=== PATIENT | female | born 1945 | race Asian ===

== ENCOUNTER 2016-12-25 22:03 | Inpatient (IN) | payer SELFPAY ==
[2016-12-25] MEDS ORDERED: BLOOD PRESSURE MED (22:26)
[2016-12-25 23:05] LABS: URINE BILIRUBIN NEGATIVE (NEG); URINE BLOOD NEGATIVE (NEG); URINE GLUCOSE (UA) NEGATIVE (NEG); URINE KETONE NEGATIVE (NEG); URINE LEUKOCYTE ESTERASE POSITIVE (NEG); URINE NITRITE NEGATIVE (NEG); URINE PROTEIN NEGATIVE (NEG); URINE SPECIFIC GRAVITY 1.005 (1.003-1.030)
[2016-12-25 23:06] LABS: URINE APPEARANCE CLEAR; URINE COLOR YELLOW
[2016-12-25 23:24] LABS: BASO % 0.8 % (0-2); EOS % 2.9 % (0-7); EOSINOPHIL ABSOLUTE COUNT 0.1 tho/cmm (0.0-0.7); HGB-HEMOGLOBIN 12.7 gm/dl (12.0-15.5); LYMPH % 34.2 % (20-45); LYMPH ABSOLUTE COUNT 1.7 tho/cmm (0.8-4.5); MCH (MEAN CORPUSCULAR HGB) 30.4 pg (28.0-32.0); MCHC MEAN CORPUSCULAR HGB CONC 33.4 % (32.0-36.0); MCV (MEAN CELL VOLUME) 90.9 fl (82.0-96.0); MEAN PLATELET VOLUME 10.6 cmc (9.4-12.4); MONOCYTE ABSOLUTE COUNT 0.4 tho/cmm (0.0-1.2); NEUTROPHIL ABSOLUTE COUNT 2.6 tho/cmm (1.6-8.0); NEUTROPHIL-AUTOMATED 2.6 tho/cmm (1.6-8.0); NEUTROPHILS % 53.1 % (40-80); PLATELET COUNT 190 tho/cmm (150-450); RED BLOOD COUNT 4.18 mil/cmm (4.00-5.20); RED CELL DISTRIBUTION WIDTH 11.9 % (12.4-16.4); WHITE BLOOD COUNT 4.9 tho/cmm (4.0-10.0)
[2016-12-25 23:54] LABS: ANION GAP 12 mmol/L (0-20); BLOOD UREA NITROGEN 13 mg/dl (6-24); CALCIUM 8.9 mg/dl (8.5-10.5); CARBON DIOXIDE-VENOUS 28 mmol/L (22-32); CHLORIDE 106 mmol/l (96-110); CREATININE 0.65 mg/dl (0.50-1.10); GLUCOSE 87 mg/dL (70-110); MAGNESIUM 2.4 mg/dl (1.3-2.6); POTASSIUM 3.5 mmol/L (3.7-5.1); SODIUM 142 mmol/L (135-145); eGFR VALUE FOR BLACK >90 mL/Min
[2016-12-26 01:14] LABS: CKMB 1.1 ng/ml (<3.6); CREATINE PHOSPHOKINASE (CPK) 92 U/L (21-215)
[2016-12-26 05:32] LABS: INR 0.9 INR (0.9-1.1)
[2016-12-26 05:39] LABS: ANION GAP 10 mmol/L (0-20); BLOOD UREA NITROGEN 12 mg/dl (6-24); CALCIUM 8.6 mg/dl (8.5-10.5); CARBON DIOXIDE-VENOUS 28 mmol/L (22-32); CHLORIDE 110 mmol/l (96-110); CREATININE 0.67 mg/dl (0.50-1.10); GLUCOSE 93 mg/dL (70-110); POTASSIUM 3.7 mmol/L (3.7-5.1); SODIUM 144 mmol/L (135-145); eGFR VALUE FOR BLACK >90 mL/Min
[2016-12-26 05:45] LABS: CKMB 1.4 ng/ml (<3.6); CREATINE PHOSPHOKINASE (CPK) 65 U/L (21-215)
[2016-12-26 09:35] LABS: CREATINE PHOSPHOKINASE (CPK) 77 U/L (21-215)
[2016-12-26 09:40] LABS: CKMB 0.5 ng/ml (<3.6)
[2016-12-27 04:45] LABS: BASO % 0.9 % (0-2); EOS % 3.1 % (0-7); EOSINOPHIL ABSOLUTE COUNT 0.1 tho/cmm (0.0-0.7); HGB-HEMOGLOBIN 12.7 gm/dl (12.0-15.5); IMMATURE GRANULOCYTES ABSOLUTE 0.01 tho/cmm (0-0.03); IMMATURE GRANULOCYTES PERCENT 0.2 % (0-0.3); LYMPH % 37.6 % (20-45); LYMPH ABSOLUTE COUNT 1.6 tho/cmm (0.8-4.5); MCH (MEAN CORPUSCULAR HGB) 29.9 pg (28.0-32.0); MCHC MEAN CORPUSCULAR HGB CONC 32.6 % (32.0-36.0); MCV (MEAN CELL VOLUME) 91.8 fl (82.0-96.0); MEAN PLATELET VOLUME 10.8 cmc (9.4-12.4); MONO % 7.5 % (0-12); MONOCYTE ABSOLUTE COUNT 0.3 tho/cmm (0.0-1.2); NEUTROPHIL ABSOLUTE COUNT 2.2 tho/cmm (1.6-8.0); NEUTROPHIL-AUTOMATED 2.2 tho/cmm (1.6-8.0); NEUTROPHILS % 50.7 % (40-80); PLATELET COUNT 182 tho/cmm (150-450); RED BLOOD COUNT 4.25 mil/cmm (4.00-5.20); RED CELL DISTRIBUTION WIDTH 12.1 % (12.4-16.4); WHITE BLOOD COUNT 4.3 tho/cmm (4.0-10.0)
[2016-12-27 05:00] LABS: BLOOD UREA NITROGEN 17 mg/dl (6-24); CALCIUM 8.7 mg/dl (8.5-10.5); CHLORIDE 109 mmol/l (96-110); CHOLESTEROL 199 mg/dl (120-200); GLUCOSE 89 mg/dL (70-110); HDL CHOLESTEROL 51 mg/dl (40-60); LDL CHOLESTEROL 130 mg/dl (0-99); POTASSIUM 3.7 mmol/L (3.7-5.1); SODIUM 145 mmol/L (135-145); TRIGLYCERIDES 94 mg/dl (<149); VLDL 19 mg/dl (0-30); eGFR VALUE FOR BLACK >90 mL/Min
[2016-12-27 06:01] LABS: ANION GAP 11 mmol/L (0-20); CARBON DIOXIDE-VENOUS 29 mmol/L (21-33)
[2016-12-27] MEDS ORDERED: LIPITOR40 M1 PO (19:54)
[2016-12-27] MEDS ORDERED: ASPIRIN325 M3 PO (19:55)
[2016-12-27] MEDS ORDERED: PRINIVIL5 M1 PO (19:55)
[2016-12-27] MEDS ORDERED: GLUCOPHAGE1000 M1 PO (19:56)
== END 2016-12-27 21:35 | DRG 66 ==
LOC: EDMED 22:03 → EMR2 12-26 00:46 → 5EB 12-26 01:18
PROVIDERS: Emergency Medicine; Internal Medicine; ADMIT Hospitalist
DX: I63.9 Cerebral infarction, unspecified (principal); E11.9 Type 2 diabetes mellitus without complications; I10 Essential (primary) hypertension; E78.5 Hyperlipidemia, unspecified; R51 Headache; R20.2 Paresthesia of skin; R07.9 Chest pain, unspecified
CPT/HCPCS: A9577; G0009; J1650; J7030